=== PATIENT | male | born 1935 | race Caucasian/White ===

== ENCOUNTER 2018-10-05 06:10 | Inpatient (IN) | payer OTHER, BC ==
[2018-10-05] MEDS ORDERED: GENTAMICIN SO4 80 MG/2 ML VIAL ONE (07:32)
[2018-10-05] MEDS ORDERED: LIDOCAINE 1%-EPI 1:100,000 30 ML MDV IJ ONE (07:32)
[2018-10-05] MEDS ORDERED: VANCOMYCIN 1,000 MG VIAL (RESTRICTED TO ID ONLY) ONE ×2 (07:32→08:23)
[2018-10-05] MEDS ORDERED: THROMBIN (BOVINE) 20,000 UNIT VIAL TP ONE (07:33)
[2018-10-05] MEDS ORDERED: ceFAZolin SODIUM 1 GM VIAL ONE ×2 (07:33→08:21)
[2018-10-05] MEDS ORDERED: BUPIVACAINE HCL/PF 0.5% (5MG/ML) 10 ML VIAL ONE (07:34)
[2018-10-05] MEDS ORDERED: ROCURONIUM BROMIDE 50 MG/5 ML VIAL ONE (07:59)
[2018-10-05] MEDS ORDERED: PROPOFOL 20 ML ONE ×2 (07:59)
[2018-10-05] MEDS ORDERED: MIDAZOLAM HCL 2 MG/2 ML SINGLE DOSE VIAL ONE (07:59)
[2018-10-05] MEDS ORDERED: LIDOCAINE HCL/PF 2% SDV 5ML VIAL ONE (08:00)
--- NOTE | 2018-10-05 08:10 | HP ---
History & Physical Update - History History: No Change - Physical Physical: No Change - Assessment Assessment: No Change - Plan Plan: No Change (no change since visit on 10/04)
[2018-10-05] MEDS ORDERED: DESFLURANE GAS 240 ML BOTTLE IH ONE (08:17)
[2018-10-05] MEDS ORDERED: SODIUM CHLORIDE 0.9% P/F 10 ML VIAL IJ ONE ×2 (08:21→08:23)
[2018-10-05] MEDS ORDERED: ceFAZolin SODIUM 1 GM VIAL IVPB ONE (08:23)
[2018-10-05] MEDS ORDERED: DEXAMETHASONE SOD PHOSPHATE 4 MG/1 ML VIAL ONE (08:25)
[2018-10-05] MEDS ORDERED: ONDANSETRON 4 MG/2 ML VIAL ONE (08:25)
[2018-10-05] MEDS ORDERED: VANCOMYCIN 1,000 MG VIAL (RESTRICTED TO ID ONLY) IVPB ONE (08:25)
[2018-10-05] MEDS ORDERED: GENTAMICIN 80MG PREMIX BAG IVPB ONE (09:00)
[2018-10-05] MEDS ORDERED: HYDROGEN PEROXIDE 473 ML PO ONE (09:00)
[2018-10-05] MEDS ORDERED: BACITRACIN 50,000 UNITS VIAL TP ONE (09:00)
[2018-10-05] MEDS ORDERED: GLYCOPYRROLATE 0.2 MG/1 ML VIAL ONE (09:32)
[2018-10-05] MEDS ORDERED: NEOSTIGMINE METHYLSULFATE 0.5 MG/1 ML - 10 ML MDV ONE (09:32)
[2018-10-05] MEDS ORDERED: LIDOCAINE 1%/EPI 1:100000 (20 ML MULTI DOSE VIAL) INF ONE ×2 (09:33)
[2018-10-05] MEDS ORDERED: DEXAMETHASONE SOD PHOSPHATE 4 MG/1 ML VIAL IVPUSH PRN (10:12)
[2018-10-05] MEDS ORDERED: ONDANSETRON 4 MG/2 ML VIAL IVPUSH PRN ×2 (10:12→10:24)
[2018-10-05] MEDS ORDERED: PROMETHAZINE HCL 25 MG/1 ML VIAL IVPB PRN (10:12)
[2018-10-05] MEDS ORDERED: LACTATED RINGERS SOLUTION 1,000 ML IV SCH (10:15)
[2018-10-05] MEDS ORDERED: diphenhydrAMINE HCL 25 MG CAPSULE (FP) PO PRN (10:24)
--- NOTE | 2018-10-05 10:42 | OP ---
Operative Note - Note: Operative Date: 10/05/18 Pre-Operative Diagnosis: cervical spondylosis Operation: C6 corpectomy and roman catholic of lordosis and reconstruction with peek cage and anterior plating Post-Operative Diagnosis: Same as Pre-op Surgeon: Sesar Womack Superintendent Ammunition Storage: Mary Lou Darby Anesthesiologist/ADMINISTRATIVE ASSISTANT COORDINATOR: Flakito Burton Anesthesia: General Estimated Blood Loss (mls): 10 Fluid Volume Replaced (mls): 700 Operative Report Dictated: Yes
[2018-10-05] MEDS ORDERED: HYDROmorphone *PCA* 10MG/50ML DISP.SYRIN PCA ONE (10:56)
[2018-10-05] MEDS: HYDROmorphone *PCA* 10MG/50ML DISP.SYRIN PCA SCH (11:10)
[2018-10-05] MEDS: SODIUM CHLORIDE 1,000 ML IV SCH ×2 (11:11→19:05)
[2018-10-05] MEDS: INSULIN SLIDING SCALE (NOVOLOG) 1 VIAL SQ SCH ×2 (11:17→19:10)
[2018-10-05] MEDS ORDERED: ACETAMINOPHEN 1000 MG/100 ML VIAL (NON FORMULARY) IVPB PRN (12:05)
--- NOTE | 2018-10-05 12:19 | PN ---
Progress Note (short form) - Note Progress Note: surgery Confirmed with ASU that patient stated clearly that he has stopped all his home medications on his own and without the knowledge of his PCP Ashwin Martinez with the exception of Procardia which he has continued. I spoke directly to Dr Ashwin Martinez who confirmed the patient should be taking the following medications: Nifedipine 60mg daily Metformin XR 750 BID Allopurinol 300mg daily Atorvastatin 20mg daily Lisinopril 10mg daily We have started these medications in house and will educate patient on the importance on resuming medications and following up Dr Martinez as outpatient.
--- NOTE | 2018-10-05 14:13 | PN ---
Progress Note, Physician Chief Complaint: Cervical Spondylosis S/p C6 Corpectomy and sikh of lordosis History of Present Illness: Previous notes and events reviewed awake and alert NAD POD #0 C6 corpectomy and sikh of lordosis - Current Medication List Current Medications: Active Medications Acetaminophen (Ofirmev Injection -) 1,000 mg IVPB Q6H PRN PRN Reason: pain Stop: 10/06/18 12:04 Allopurinol (Zyloprim -) 300 mg PO DAILY [facility] Atorvastatin Calcium (Lipitor -) 20 mg PO HS [facility] Dexamethasone Sodium Phosphate (Decadron Injection -) 4 mg IVPUSH ONCE PRN PRN Reason: NAUSEA AND/OR VOMITING Diphenhydramine HCl (Benadryl Injection -) 12.5 mg IVPUSH ONCE PRN PRN Reason: FOR ITCHING Diphenhydramine HCl (Benadryl -) 25 mg PO Q6H PRN PRN Reason: FOR ITCHING Docusate Sodium (Colace -) 100 mg PO TID [facility] Fentanyl (Sublimaze Injection -) 50 mcg IVPUSH [id number] PRN PRN Reason: PAIN-PACU ORDER X 4 DOSES ONLY Ferrous Sulfate (Feosol -) 325 mg PO DAILY [facility] Folic Acid (Folic Acid -) 1 mg PO DAILY [facility] Heparin Sodium (Porcine) (Heparin -) 5,000 unit SQ TID [facility] Hydromorphone HCl (Dilaudid Bookmaker'S Clerk -) 0 mg BALL RACKER BALL RACKER [facility]; Protocol Stop: 10/12/18 10:13 Last Admin: 10/05/18 11:10 Dose: 10 mg Sodium Chloride (Normal Saline -) 1,000 mls @ 100 mls/hr IV ASDIR [facility] Last Admin: 10/05/18 11:11 Dose: 100 mls/hr Cefazolin Sodium (Ancef 1 Gm Premixed Ivpb -) 1 gm in 50 mls @ 100 mls/hr IVPB Q8H [facility] Insulin Aspart (Novolog Vial Sliding Scale -) 1 vial SQ TIDAC [facility]; Protocol Last Admin: 10/05/18 11:17 Dose: 4 syringe Lisinopril (Prinivil) 10 mg PO DAILY [facility] Metformin HCl (Glucophage Xr -) 750 mg PO BID [facility] Nifedipine (Procardia Xl -) 60 mg PO DAILY [facility] Ondansetron HCl (Zofran Injection) 4 mg IVPUSH Q4H PRN PRN Reason: NAUSEA AND/OR VOMITING Ondansetron HCl (Zofran Injection) 4 mg IVPUSH Q6H PRN PRN Reason: NAUSEA Promethazine HCl (Phenergan Injection -) 12.5 mg IVPB Q6H PRN PRN Reason: NAUSEA AND/OR VOMITING - Objective Vital Signs: Vital Signs Temperature 97.9 F 10/05/18 12:40 Pulse Rate 68 10/05/18 12:40 Respiratory Rate 18 10/05/18 12:40 Blood Pressure 166/82 10/05/18 12:40 O2 Sat by Pulse Oximetry (%) 97 10/05/18 12:25 Constitutional: Yes: No Distress, Calm Eyes: Yes: Conjunctiva Clear HENT: Yes: Atraumatic Neck: Yes: Other (c-collar) Cardiovascular: Yes: Regular Rate and Rhythm Respiratory: Yes: Regular, CTA Bilaterally Gastrointestinal: Yes: Normal Bowel Sounds, Soft Genitourinary: Yes: Torres Present Musculoskeletal: Yes: Muscle Weakness Extremities: Yes: WNL Edema: No Wound/Incision: Yes: Dressing Dry and Intact Neurological: Yes: Alert, Oriented Psychiatric: Yes: Alert, Oriented Problem List - Problems (1) HTN (hypertension) Assessment/Plan: -low Na diet -continue Lisinopril and Procardia Code(s): I10 - ESSENTIAL (PRIMARY) HYPERTENSION (2) Diabetes mellitus Assessment/Plan: -BGM ACHS -ISS + Metformin -HgA1c ordered -diabetic diet Code(s): E11.9 - TYPE 2 DIABETES MELLITUS WITHOUT COMPLICATIONS (3) Hyperlipidemia Assessment/Plan: -continue Atorvastatin -lipid panel Code(s): E78.5 - HYPERLIPIDEMIA, UNSPECIFIED (4) Cervical spondylosis Assessment/Plan: -neurosurgery on board -s/p C6 corpectomy and sikh of lordosis and reconstruction with peek cage and anterior plating -C-collar in place -Dilaudid BALL RACKER pump for pain management -IV Cefazolin -monitor ELEONORA drain output -pending Cervicak Spine CT Scan result Code(s): M47.812 - SPONDYLOSIS W/O MYELOPATHY OR RADICULOPATHY, CERVICAL REGION (5) Acute on chronic diastolic (congestive) heart failure Code(s): I50.33 - ACUTE ON CHRONIC DIASTOLIC (CONGESTIVE) HEART FAILURE Assessment/Plan see problem list dvt ppx
[2018-10-05] MEDS: DOCUSATE SODIUM 100 MG CAPSULE (FP) PO SCH ×2 (16:56→21:49)
[2018-10-05] MEDS ORDERED: CEFAZOLIN 1 GM/D5W 1 GM/50 ML BAG IVPB SCH (17:30)
[2018-10-05] MEDS: CEFAZOLIN 1 GM/D5W 1 GM/50 ML BAG IVPB SCH (19:05)
[2018-10-05] MEDS: HEPARIN NA (PORCINE) 5,000 UNITS/ML 1ML VIAL SQ SCH (21:48)
[2018-10-05] MEDS: ATORVASTATIN CA 20 MG TABLET (FP) PO SCH (21:49)
[2018-10-05] MEDS ORDERED: PT OWN MED DRAWER 7, Y5N ONE (22:04)
[2018-10-06] MEDS: CEFAZOLIN 1 GM/D5W 1 GM/50 ML BAG IVPB SCH ×3 (01:50→17:30)
[2018-10-06] MEDS ORDERED: PT OWN MED DRAWER 7, Y5N ONE (05:37)
[2018-10-06] MEDS: HEPARIN NA (PORCINE) 5,000 UNITS/ML 1ML VIAL SQ SCH ×3 (05:59→23:34)
[2018-10-06] MEDS: DOCUSATE SODIUM 100 MG CAPSULE (FP) PO SCH ×4 (05:59→23:40)
[2018-10-06] MEDS: INSULIN SLIDING SCALE (NOVOLOG) 1 VIAL SQ SCH ×3 (06:17→17:30)
[2018-10-06 07:25] LABS: HEMATOCRIT 37.8 % (35.4-49); HEMOGLOBIN 12.9 GM/dL (11.7-16.9); MCH 32.9 pg (25.7-33.7); MCHC 34.1 g/dl (32.0-35.9); MEAN CELL VOLUME 96.3 fl (80-96); MEAN PLT VOLUME 8.5 fl (7.5-11.1); PLATELET COUNT 208 K/MM3 (134-434); RBC 3.93 M/mm3 (4.00-5.60); RDW 13.3 % (11.9-15.9); WHITE BLOOD COUNT 8.5 K/mm3 (4.0-10.0)
[2018-10-06 07:42] LABS: ANION GAP 7 MMOL/L (8-16); BLOOD UREA NITROGEN 14 mg/dL (7-18); CALCIUM 8.4 mg/dL (8.5-10.1); CHLORIDE 105 mmol/L (98-107); CO2 28 mmol/L (21-32); CREATININE 0.9 mg/dL (0.55-1.3); GLUCOSE,RANDOM 156 mg/dL (74-106); POTASSIUM 4.4 mmol/L (3.5-5.1); SODIUM 139 mmol/L (136-145)
[2018-10-06 07:51] LABS: CHOLESTEROL 164 mg/dL (50-200); HDL CHOLESTEROL 71 mg/dL (40-60); TRIGLYCERIDES 61 mg/dL (0-150)
--- NOTE | 2018-10-06 09:13 | PN ---
Progress Note (short form) - Note Progress Note: surgery POD #1 ACDF patient seen and examined at bedside. Patient states he experienced some nausea and vomiting last night which has improved. He is not using his PRETZEL TWISTER because he said he doesn't like the way it makes him feel. He states the neck pain he was having pre-op has improved and he denies any radicular pain or paresthesias in his upper extremities. Vital Signs Temp 98.1 F 10/06/18 06:00 Pulse 54 L 10/06/18 06:00 Resp 20 10/06/18 06:00 BP 186/86 H 10/06/18 06:00 Pulse Ox 96 10/05/18 13:40 Intake & Output 10/05/18 10/05/18 10/06/18 11:59 23:59 11:59 Intake Total 5681 075 1617 Output Total 85 1805 340 Balance 1065 -1155 810 Intake: IV 8328 528 8324 Normal Saline - 1,000 ml 400 1000 @ 100 mls/hr IV ASDIR [facility] Rx#:[id number] IVPB 50 50 Oral 200 100 Output: Drainage 105 40 Right Neck 70 40 Urine 75 1700 300 Torres 700 300 Estimated Blood Loss 10 Other: Voiding Method Incontinent CBC, BMP 10/06/18 06:20 10/06/18 06:20 PE: A&Ox3, NAD Unlabored resp on 2L NC Anterior dressing c/d/i with drain at right side in good position draining well (110cc post op) surrounding tissue intact with no erythema, edema or d/c. trachea midline. b/l UE moving without limitation, 5/5 desktop support specialist strength. B.L LE compartments soft, supple and non-tender with +2 DP pulses Problem List - Problems (1) Cervical spondylosis Assessment/Plan: POD #1 ACDF with some post op vomiting and nausea improving. Not tolerating PRETZEL TWISTER. Of note: I spoke with patient about the importance of taking his medications as prescribed by his PCP and he expressed understanding and stated that from now on he would take the medications as directed. 1) stop PRETZEL TWISTER start oral pain meds 2) DVT prophylaxis with b/l scds and sq heparin 3) Zofran for nausea 4) advance diet as tolerated 5) OOB with PT 6) C-Collar 23 hours/day Code(s): M47.812 - SPONDYLOSIS W/O MYELOPATHY OR RADICULOPATHY, CERVICAL REGION
[2018-10-06] MEDS ORDERED: oxyCODONE HCL 5 MG TABLET PO PRN ×2 (10:19)
[2018-10-06] MEDS: LISINOPRIL 10 MG TABLET (FP) PO SCH (10:25)
[2018-10-06] MEDS: FOLIC ACID 1 MG TABLET (FP) PO SCH (10:25)
[2018-10-06] MEDS: FERROUS SO4 325 MG TABLET (FP) PO SCH (10:25)
[2018-10-06] MEDS: NIFEdipine E.R 60 MG TABLET (UD) PO SCH (10:25)
--- NOTE | 2018-10-06 10:25 | PN ---
Progress Note (short form) - Note Progress Note: Anesthesiology Post-op 83 y.o. man POD#1 s/p C6 corpectomy under GA. Pt. sitting up, feeling well. He denies pain. He no longer c/o n/v. VSS.No apparent anesthesia-related issues. 83 y.o. man with stable post-operative course. Continue post-operative care as per primary team.
[2018-10-06] MEDS: ALLOPURINOL 300 MG TABLET (FP) PO SCH (10:26)
--- NOTE | 2018-10-06 10:50 | PN ---
Progress Note, Physician History of Present Illness: vomited this am has chest pressure--mild - Current Medication List Current Medications: Active Medications Acetaminophen (Ofirmev Injection -) 1,000 mg IVPB Q6H PRN PRN Reason: pain Stop: 10/06/18 12:04 Allopurinol (Zyloprim -) 300 mg PO DAILY [facility] Last Admin: 10/06/18 10:26 Dose: 300 mg Atorvastatin Calcium (Lipitor -) 20 mg PO HS [facility] Last Admin: 10/05/18 21:49 Dose: 20 mg Dexamethasone Sodium Phosphate (Decadron Injection -) 4 mg IVPUSH ONCE PRN PRN Reason: NAUSEA AND/OR VOMITING Diphenhydramine HCl (Benadryl Injection -) 12.5 mg IVPUSH ONCE PRN PRN Reason: FOR ITCHING Diphenhydramine HCl (Benadryl -) 25 mg PO Q6H PRN PRN Reason: FOR ITCHING Docusate Sodium (Colace -) 100 mg PO TID [facility] Last Admin: 10/06/18 05:59 Dose: Not Given Ferrous Sulfate (Feosol -) 325 mg PO DAILY [facility] Last Admin: 10/06/18 10:25 Dose: 325 mg Folic Acid (Folic Acid -) 1 mg PO DAILY [facility] Last Admin: 10/06/18 10:25 Dose: 1 mg Heparin Sodium (Porcine) (Heparin -) 5,000 unit SQ TID [facility] Last Admin: 10/06/18 05:59 Dose: 5,000 unit Sodium Chloride (Normal Saline -) 1,000 mls @ 100 mls/hr IV ASDIR [facility] Last Admin: 10/05/18 19:05 Dose: 100 mls/hr Cefazolin Sodium (Ancef 1 Gm Premixed Ivpb -) 1 gm in 50 mls @ 100 mls/hr IVPB Q8H [facility] Last Admin: 10/06/18 10:25 Dose: 100 mls/hr Insulin Aspart (Novolog Vial Sliding Scale -) 1 vial SQ TIDAC [facility]; Protocol Last Admin: 10/06/18 06:17 Dose: 2 units Lisinopril (Prinivil) 10 mg PO DAILY [facility] Last Admin: 10/06/18 10:25 Dose: 10 mg Metformin HCl (Glucophage Xr -) 750 mg PO BIDAC [facility] Last Admin: 10/06/18 06:18 Dose: 750 mg Nifedipine (Procardia Xl -) 60 mg PO DAILY [facility] Last Admin: 10/06/18 10:25 Dose: 60 mg Ondansetron HCl (Zofran Injection) 4 mg IVPUSH Q4H PRN PRN Reason: NAUSEA AND/OR VOMITING Last Admin: 10/06/18 08:59 Dose: 4 mg Ondansetron HCl (Zofran Injection) 4 mg IVPUSH Q6H PRN PRN Reason: NAUSEA Oxycodone HCl (Roxicodone -) 5 mg PO Q4H PRN PRN Reason: PAIN LEVEL 1-5 Oxycodone HCl (Roxicodone -) 10 mg PO Q4H PRN PRN Reason: PAIN LEVEL 6-10 Promethazine HCl (Phenergan Injection -) 12.5 mg IVPB Q6H PRN PRN Reason: NAUSEA AND/OR VOMITING - Objective Vital Signs: Vital Signs Temperature 98.1 F 10/06/18 06:00 Pulse Rate 54 L 10/06/18 06:00 Respiratory Rate 20 10/06/18 06:00 Blood Pressure 186/86 H 10/06/18 06:00 O2 Sat by Pulse Oximetry (%) 96 10/05/18 13:40 Cardiovascular: Yes: S1, S2 Respiratory: Yes: On Nasal O2, Rales Gastrointestinal: Yes: Normal Bowel Sounds, Soft Labs: CBC, BMP 10/06/18 06:20 10/06/18 06:20 Problem List - Problems (1) CHF (congestive heart failure) Assessment/Plan: dc ivf cxr Code(s): I50.9 - HEART FAILURE, UNSPECIFIED (2) Chest pain Assessment/Plan: maybe from vomiting ppi ce and ekg Code(s): R07.9 - CHEST PAIN, UNSPECIFIED (3) Vomiting Code(s): R11.10 - VOMITING, UNSPECIFIED (4) Cervical spondylosis Assessment/Plan: -neurosurgery on board -s/p C6 corpectomy and taoist of lordosis and reconstruction with peek cage and anterior plating -C-collar in place -Dilaudid STRATEGIC MANAGER pump for pain management -IV Cefazolin -monitor ELEONORA drain output -pending [facility] Spine CT Scan result Code(s): M47.812 - SPONDYLOSIS W/O MYELOPATHY OR RADICULOPATHY, CERVICAL REGION (5) Diabetes mellitus Assessment/Plan: -BGM ACHS -ISS + Metformin -HgA1c ordered -diabetic diet Code(s): E11.9 - TYPE 2 DIABETES MELLITUS WITHOUT COMPLICATIONS (6) HTN (hypertension) Assessment/Plan: -low Na diet -continue Lisinopril and Procardia Code(s): I10 - ESSENTIAL (PRIMARY) HYPERTENSION (7) Hyperlipidemia Assessment/Plan: -continue Atorvastatin -lipid panel Code(s): E78.5 - HYPERLIPIDEMIA, UNSPECIFIED
[2018-10-06 12:11] LABS: N-TERMINAL BNP 849.1 pg/ml (5-450)
--- NOTE | 2018-10-06 12:32 | EKG ---
Test Reason : Blood Pressure : / mmHG Vent. Rate : 062 BPM Atrial Rate : 062 BPM P-R Int : 254 ms QRS Dur : 096 ms QT Int : 416 ms P-R-T Axes : 102 -24 -14 degrees QTc Int : 422 ms SINUS RHYTHM WITH 1ST DEGREE A-V BLOCK OTHERWISE NORMAL ECG WHEN COMPARED WITH ECG OF 05-OCT-2018 06:43, NO SIGNIFICANT CHANGE WAS FOUND Confirmed by STEPHANY FARRELL, JACKELINE ([id number]) on 10/06/2018 12:32:21 PM Referred By: Concepción AVITIA Confirmed By:JACKELINE HAMMOND MD
[2018-10-06] MEDS: PANTOPRAZOLE 40 MG TABLET (FP) PO SCH (14:26)
[2018-10-06] MEDS ORDERED: BENZOCAINE/MENTH/CETYLPYRD CL 1 EACH LOZENGE MM PRN (14:56)
[2018-10-06 16:58] VITALS: BMI 29.1
[2018-10-06] MEDS: ATORVASTATIN CA 20 MG TABLET (FP) PO SCH (23:35)
[2018-10-07] MEDS: CEFAZOLIN 1 GM/D5W 1 GM/50 ML BAG IVPB SCH ×3 (02:29→09:14)
[2018-10-07] MEDS: DOCUSATE SODIUM 100 MG CAPSULE (FP) PO SCH (06:25)
[2018-10-07] MEDS: HEPARIN NA (PORCINE) 5,000 UNITS/ML 1ML VIAL SQ SCH (06:25)
[2018-10-07] MEDS: INSULIN SLIDING SCALE (NOVOLOG) 1 VIAL SQ SCH ×2 (06:26→12:00)
[2018-10-07] MEDS: HYDROmorphone *PCA* 10MG/50ML DISP.SYRIN PCA SCH (07:25)
--- NOTE | 2018-10-07 08:49 | PN ---
Progress Note (short form) - Note Progress Note: surgery POD #2 ACDF patient seen and examined at bedside. Patient has very little pain and is ready to go home. He is tolerating a regular diet and he denies any cp, SOB, N/V fever or chills. Vital Signs Temp 98.9 F 10/07/18 06:00 Pulse 64 10/07/18 06:00 Resp 20 10/07/18 06:00 BP 151/76 10/07/18 06:00 Pulse Ox 98 10/06/18 21:00 Intake & Output 10/06/18 10/06/18 10/07/18 11:59 23:59 11:59 Intake Total 1150 1650 200 Output Total 340 340 20 Balance 810 1310 180 Weight 175 lb Intake: IV 1000 1000 0 Normal Saline - 1,000 ml 1000 1000 0 @ 100 mls/hr IV ASDIR SELVIN Rx#:[id number] IVPB 50 50 Oral 100 600 200 Output: Drainage 40 40 20 Right Neck 40 40 20 Urine 300 300 Torres 300 300 Other: Voiding Method Urinal Urinal Urinal # Unmeasured Voids Torres 1 Height 5 ft 5 in Body Mass Index (BMI) 29.1 Weight Measurement Method Built in [facility] PE: A&Ox3, NAD Unlabored resp on RA Anterior incision c/d/i with surrounding tissue intact, ELEONORA drain removed with tip fully intact, surrounding tissue intact with no erythema, edema or d/c. trachea midline. b/l UE moving without limitation, 5/5 bioinformatics computer scientist strength. B.L LE compartments soft, supple and non-tender with +2 DP pulses Problem List - Problems (1) Cervical spondylosis Assessment/Plan: POD #2 ACDF patient doing well. 1) Continue c-collar 23 hours/day 2) OOB with PT 3) DVT prophylaxis 4) d/c home with today 5) f/u with PCP as outpatient 6) f/u with Dr Womack as scheduled. Code(s): M47.812 - SPONDYLOSIS W/O MYELOPATHY OR RADICULOPATHY, CERVICAL REGION
[2018-10-07] MEDS: PANTOPRAZOLE 40 MG TABLET (FP) PO SCH (10:16)
[2018-10-07] MEDS: NIFEdipine E.R 60 MG TABLET (UD) PO SCH (10:16)
[2018-10-07] MEDS: FERROUS SO4 325 MG TABLET (FP) PO SCH (10:16)
[2018-10-07] MEDS: LISINOPRIL 10 MG TABLET (FP) PO SCH (10:16)
[2018-10-07] MEDS: FOLIC ACID 1 MG TABLET (FP) PO SCH (10:16)
--- NOTE | 2018-10-07 10:39 | DS ---
"Physical Examination Vital Signs: Vital Signs Temperature 98.9 F 10/07/18 06:00 Pulse Rate 64 10/07/18 06:00 Respiratory Rate 20 10/07/18 06:00 Blood Pressure 151/76 10/07/18 06:00 O2 Sat by Pulse Oximetry (%) 98 10/06/18 21:00 Findings/Remarks: Cervical Spondylosis S/p C6 Corpectomy and yazidi of lordosis Constitutional: Yes: No Distress, Calm Eyes: Yes: Conjunctiva Clear HENT: Yes: Atraumatic Neck: Yes: Other (c-collar) Cardiovascular: Yes: Regular Rate and Rhythm Respiratory: Yes: Regular, CTA Bilaterally Gastrointestinal: Yes: Normal Bowel Sounds, Soft Musculoskeletal: Yes: WNL Extremities: Yes: WNL Edema: No Neurological: Yes: Alert, Pre-Existing Deficit Psychiatric: Yes: Alert Labs: CBC, BMP 10/06/18 06:20 10/06/18 06:20 Discharge Summary Reason For Visit: CERVICAL SPONDYLOSIS Current Active Problems CHF (congestive heart failure) (Acute) Cervical spondylosis (Acute) Chest pain (Acute) Diabetes mellitus (Acute) HTN (hypertension) (Acute) Hyperlipidemia (Acute) Vomiting (Acute) Hospital Course: see progress notes Laboratory Tests 10/05/18 10/05/18 10/05/18 06:32 07:03 07:40 WBC RBC Hgb Hct MCV MCH MCHC RDW Plt Count MPV Sodium Potassium Chloride Carbon Dioxide Anion Gap BUN Creatinine Creat Clearance w eGFR POC Glucometer 168 Random Glucose Hemoglobin A1c % Calcium Creatine Kinase Creatine Kinase Index CK-MB (CK-2) Troponin I B-Natriuretic Peptide Triglycerides Cholesterol Total LDL Cholesterol HDL Cholesterol Blood Type O POSITIVE O POSITIVE Antibody Screen Negative 10/05/18 10/05/18 10/06/18 10:40 19:08 05:51 WBC RBC Hgb Hct MCV MCH MCHC RDW Plt Count MPV Sodium Potassium Chloride Carbon Dioxide Anion Gap BUN Creatinine Creat Clearance w eGFR POC Glucometer 245 194 153 Random Glucose Hemoglobin A1c % Calcium Creatine Kinase Creatine Kinase Index CK-MB (CK-2) Troponin I B-Natriuretic Peptide Triglycerides Cholesterol Total LDL Cholesterol HDL Cholesterol Blood Type Antibody Screen 10/06/18 10/06/18 10/06/18 06:20 06:20 06:20 WBC 8.5 RBC 3.93 L Hgb 12.9 Hct 37.8 MCV 96.3 H MCH 32.9 MCHC 34.1 RDW 13.3 Plt Count 208 MPV 8.5 Sodium 139 Potassium 4.4 Chloride 105 Carbon Dioxide 28 Anion Gap 7 L BUN 14 Creatinine 0.9 Creat Clearance w eGFR 80.99 POC Glucometer Random Glucose 156 H Hemoglobin A1c % Calcium 8.4 L Creatine Kinase Creatine Kinase Index CK-MB (CK-2) Troponin I B-Natriuretic Peptide Triglycerides 61 Cholesterol 164 Total LDL Cholesterol 88 HDL Cholesterol 71 H Blood Type Antibody Screen 10/06/18 10/06/18 10/06/18 06:20 11:10 14:10 WBC RBC Hgb Hct MCV MCH MCHC RDW Plt Count MPV Sodium Potassium Chloride Carbon Dioxide Anion Gap BUN Creatinine Creat Clearance w eGFR POC Glucometer 195 Random Glucose Hemoglobin A1c % 7.6 H Calcium Creatine Kinase 332 H Creatine Kinase Index 0.6 CK-MB (CK-2) 2.3 Troponin I < 0.02 B-Natriuretic Peptide 849.1 H Triglycerides Cholesterol Total LDL Cholesterol HDL Cholesterol Blood Type Antibody Screen 10/06/18 17:20 WBC RBC Hgb Hct MCV MCH MCHC RDW Plt Count MPV Sodium Potassium Chloride Carbon Dioxide Anion Gap BUN Creatinine Creat Clearance w eGFR POC Glucometer 137 Random Glucose Hemoglobin A1c % Calcium Creatine Kinase Creatine Kinase Index CK-MB (CK-2) Troponin I B-Natriuretic Peptide Triglycerides Cholesterol Total LDL Cholesterol HDL Cholesterol Blood Type Antibody Screen Active Medications Generic Name Dose Route Start Last Admin Trade Name Freq PRN Reason Stop Dose Admin Allopurinol 300 mg 10/06/18 10:00 10/06/18 10:26 Zyloprim - PO 300 mg DAILY [facility] Administration Atorvastatin Calcium 20 mg 10/05/18 22:00 10/06/18 23:35 Lipitor - PO Not Given [facility] Benzocaine/Menthol 1 each 10/06/18 14:56 10/06/18 16:19 Cepacol Lozenge - MM 1 each Q2H PRN Administration SORE THROAT Dexamethasone Sodium Phosphate 4 mg 10/05/18 10:12 Decadron Injection - IVPUSH ONCE PRN NAUSEA AND/OR VOMITING Diphenhydramine HCl 12.5 mg 10/05/18 10:12 Benadryl Injection - IVPUSH ONCE PRN FOR ITCHING Diphenhydramine HCl 25 mg 10/05/18 10:24 Benadryl - PO Q6H PRN FOR ITCHING Docusate Sodium 100 mg 10/05/18 14:00 10/07/18 06:25 Colace - PO 100 mg TID [facility] Administration Ferrous Sulfate 325 mg 10/06/18 10:00 10/07/18 10:16 Feosol - PO 325 mg DAILY [facility] Administration Folic Acid 1 mg 10/06/18 10:00 10/07/18 10:16 Folic Acid - PO 1 mg DAILY [facility] Administration Heparin Sodium (Porcine) 5,000 unit 10/05/18 22:00 10/07/18 06:25 Heparin - SQ 5,000 unit TID [facility] Administration Cefazolin Sodium 1 gm in 50 mls @ 100 mls/hr 10/05/18 17:30 10/07/18 09:14 Ancef 1 Gm Premixed Ivpb - IVPB Not Given Q8H [facility] Insulin Aspart 1 vial 10/05/18 11:00 10/07/18 06:26 Novolog Vial Sliding Scale - SQ Not Given TIDAC [facility] Protocol Lisinopril 10 mg 10/06/18 10:00 10/07/18 10:16 Prinivil PO 10 mg DAILY [facility] Administration Metformin HCl 750 mg 10/05/18 16:30 10/07/18 06:25 Glucophage Xr - PO 750 mg BIDAC [facility] Administration Nifedipine 60 mg 10/06/18 10:00 10/07/18 10:16 Procardia Xl - PO 60 mg DAILY [facility] Administration Ondansetron HCl 4 mg 10/05/18 10:12 10/06/18 08:59 Zofran Injection IVPUSH 4 mg Q4H PRN Administration NAUSEA AND/OR VOMITING Ondansetron HCl 4 mg 10/05/18 10:24 Zofran Injection IVPUSH Q6H PRN NAUSEA Oxycodone HCl 5 mg 10/06/18 10:19 Roxicodone - PO Q4H PRN PAIN LEVEL 1-5 Oxycodone HCl 10 mg 10/06/18 10:19 10/06/18 17:25 Roxicodone - PO 10 mg Q4H PRN Administration PAIN LEVEL 6-10 Pantoprazole Sodium 40 mg 10/06/18 11:00 10/07/18 10:16 Protonix - PO 40 mg DAILY [facility] Administration Promethazine HCl 12.5 mg 10/05/18 10:12 Phenergan Injection - IVPB Q6H PRN NAUSEA AND/OR VOMITING Condition: Good - Instructions Diet, Activity, Other Instructions: Post Operative Instructions Physical Activity Resume your normal everyday activity as tolerated. No heavy lifting or exercise until seen by your surgeon. You may walk unlimited amounts and climb stairs. You may resume driving the car when you feel safe and comfortable behind the wheel and you are no longer wearing your brace. Do not operate a vehicle while taking narcotic medication. Brace Wear your surgical collar for 23 hours per day, only removing to shower. Wound Care Keep your incision clean, dry and covered at all times. Apply an occlusive dressing (Saran wrap or Tegaderm) when showering to avoid getting your incision wet. Do not submerge incision or apply ointments or creams. Diet There are no dietary restrictions. Eat healthy, high-fiber foods. Drink 6-8 glasses of liquid each day. This will assist in keeping your bowels regular. Pain Management You may take Tylenol (Acetaminophen) for mild pain. You have been prescribed a narcotic pain medication for moderate to severe pain. Take as directed. Do not take additional Tylenol if your narcotic pain prescription contains Tylenol ( Acetaminophen). Do not drive, drink alcohol or operate heavy machinery while taking narcotic pain medications. Do not take any NSAIDS (Ibuprofen, Motrin, Aleve, etc) for 3 months unless otherwise discussed with your surgeon. Call Dr Ferreira for any of the following: Severe pain not relieved by medication Fever of 101 or higher Excessive bleeding or drainage on dressing Inability to urinate Any chest pain or shortness of breath, seek Emergency Care. ISTOP: [phone] Call the office to confirm a post-operative appointment for 2-3 weeks post-op Sesar Womack MD [facility] [address] [place] [address] Follow up with PMD 1 week after discharge follow up with Dr Delgado as scheduled continue with medication regimen as prescribed return to ER if severe pain, respiratory distress, chest pain This report was requested by: Lizbet Crews | Reference #: [id number] (ISTOP) Referrals: Sesar Womack MD, FAANS [Staff Physician] - Disposition: HOME - Home Medications Comprehensive Discharge Medication List: Ambulatory Orders Allopurinol [Zyloprim -] 300 mg PO 10/05/18 Atorvastatin Ca [Lipitor] 20 mg PO HS 10/05/18 Lisinopril 10 mg PO DAILY 10/05/18 metFORMIN XR [Glucophage *Xr* -] 750 mg PO BID 10/05/18 Allopurinol [Zyloprim -] 300 mg PO DAILY tablet 10/07/18 Atorvastatin Ca [Lipitor] 20 mg PO HS tablet 10/07/18 Docusate Sodium [Colace -] 100 mg PO TID capsule 10/07/18 Ferrous Sulfate [Feosol] 325 mg PO DAILY ud 10/07/18 Folic Acid - 1 mg PO DAILY tablet 10/07/18 Lisinopril [Prinivil] 10 mg PO DAILY tablet 10/07/18 Nifedipine ER [Procardia XL -] 60 mg PO DAILY tab.er.24 10/07/18 Pantoprazole Sodium [Protonix -] 40 mg PO DAILY tablet.ec 10/07/18 metFORMIN XR [Glucophage Xr -] 750 mg PO BIDAC tab.sr.24h 10/07/18 traMADol HCL [Ultram] 50 mg PO Q8H #9 tablet MDD 3 10/07/18"
[2018-10-07 11:23] VITALS: BP 144/82; PULSE 77; TEMP 98.1
[2018-10-07] MEDS: ALLOPURINOL 300 MG TABLET (FP) PO SCH (11:30)
== END 2018-10-07 13:40 | disposition home or self-care (01) | DRG 471 ==
LOC: JSAMEDAYSX 06:10 → J8W 13:12
PROVIDERS: ADMIT Family Medicine; ATTEND Family Medicine
PROC: 0PB30ZZ Excision of Cervical Vertebra, Open Approach (ICD-10-PCS; 2018-10-05)
PROC: B01BZZZ Fluoroscopy of Spinal Cord (ICD-10-PCS; 2018-10-05)
PROC: 0RG20A0 Fusion of 2 or more Cervical Vertebral Joints with Interbody Fusion Device, Anterior Approach, Anterior Column, Open Approach (ICD-10-PCS; principal; 2018-10-05 08:00)
DX: M47.812 Spondylosis without myelopathy or radiculopathy, cervical region (principal); I50.33 Acute on chronic diastolic (congestive) heart failure; M51.06 Intervertebral disc disorders with myelopathy, lumbar region; M50.00 Cervical disc disorder with myelopathy, unspecified cervical region; M40.292 Other kyphosis, cervical region; I11.0 Hypertensive heart disease with heart failure; I50.9 Heart failure, unspecified; E11.9 Type 2 diabetes mellitus without complications; Z79.84 Long term (current) use of oral hypoglycemic drugs; E78.5 Hyperlipidemia, unspecified; R07.89 Other chest pain; R11.10 Vomiting, unspecified; M10.9 Gout, unspecified
CPT/HCPCS: 36415; 71045-TC-FY; 72125-TC; 76000-TC-FY; 80048; 80061; 82550; 82553; 82962; 83036; 83721; 83880; 84484; 85027; 86850; 86900; 86901; 93005; 93010; 94760; 97116-GP; 97161-GP; J1644; J7030

== ENCOUNTER 2019-08-25 07:54 | Day surgery (SDC) | payer OTHER, BC ==
[2019-08-24 19:30] VITALS: BMI 27.4
[2019-08-25 08:29] VITALS: BP 195/87; PULSE 55; TEMP 98.4
--- NOTE | 2019-08-25 11:27 | HP ---
History & Physical Update - History History: No Change - Physical Physical: No Change - Assessment Assessment: No Change - Plan Plan: No Change (Initial H&P is complete/accurate and UTD. [facility] No new medications or complaints.)
[2019-08-25] MEDS ORDERED: VANCOMYCIN 1,000 MG VIAL (RESTRICTED TO ID ONLY) ONE (12:15)
[2019-08-25] MEDS ORDERED: THROMBIN (BOVINE) 20,000 UNIT VIAL TP ONE ×2 (12:15→12:19)
[2019-08-25] MEDS ORDERED: LIDOCAINE 1%-EPI 1:100,000 30 ML MDV IJ ONE (12:15)
[2019-08-25] MEDS ORDERED: GENTAMICIN SO4 80 MG/2 ML VIAL ONE (12:15)
== END 2019-08-25 13:06 | disposition home or self-care (01) ==
LOC: UNDOADMIN 07:54 → JASUSAT 07:54 → JSAMEDAYSX 07:54 → EDSTATUS 10:30 → UNDODISIN 13:06 → JASUSAT 13:06
PROVIDERS: ATTEND Neurological Surgery
DX: Z53.8 Procedure and treatment not carried out for other reasons (principal)
CPT/HCPCS: 82962

== ENCOUNTER 2021-11-28 07:32 | Day surgery (SDC) | payer OTHER ==
[2021-11-25 15:55] VITALS: BMI 26.6
[2021-11-28] MEDS ORDERED: MIDAZOLAM HCL 2 MG/2 ML SINGLE DOSE VIAL ONE (07:51)
[2021-11-28] MEDS ORDERED: PROPOFOL 20 ML ONE (07:51)
[2021-11-28] MEDS ORDERED: BUPIVACAINE HCL 100 ML ONE (08:06)
[2021-11-28] MEDS ORDERED: LIDOCAINE HCL 1%, 10 MG/ML (20ML VIAL) ONE (08:06)
[2021-11-28] MEDS ORDERED: ceFAZolin SODIUM 1 GM VIAL ONE ×2 (08:22)
[2021-11-28] MEDS ORDERED: ONDANSETRON 4 MG/2 ML VIAL ONE (08:48)
[2021-11-28] MEDS ORDERED: GLYCOPYRROLATE 0.2 MG/1 ML VIAL ONE ×2 (08:48)
[2021-11-28] MEDS ORDERED: DEXAMETHASONE SOD PHOSPHATE 4 MG/1 ML VIAL ONE (08:48)
[2021-11-28 09:27] VITALS: TEMP 97.6
[2021-11-28 10:15] VITALS: BP 126/61; PULSE 52
== END 2021-11-28 10:05 | disposition home or self-care (01) ==
LOC: FASU 07:32
PROVIDERS: ATTEND Orthopaedic Surgery
PROC: 0LB80ZZ Excision of Left Hand Tendon, Open Approach (ICD-10-PCS; 2021-11-28)
PROC: 0LB60ZZ Excision of Left Lower Arm and Wrist Tendon, Open Approach (ICD-10-PCS; 2021-11-28)
PROC: 0LB60ZZ Excision of Left Lower Arm and Wrist Tendon, Open Approach (ICD-10-PCS; 2021-11-28)
PROC: 0LB60ZZ Excision of Left Lower Arm and Wrist Tendon, Open Approach (ICD-10-PCS; 2021-11-28)
PROC: 0LB60ZZ Excision of Left Lower Arm and Wrist Tendon, Open Approach (ICD-10-PCS; 2021-11-28)
PROC: 0LB60ZZ Excision of Left Lower Arm and Wrist Tendon, Open Approach (ICD-10-PCS; 2021-11-28)
PROC: 0LB60ZZ Excision of Left Lower Arm and Wrist Tendon, Open Approach (ICD-10-PCS; 2021-11-28)
PROC: 0LB60ZZ Excision of Left Lower Arm and Wrist Tendon, Open Approach (ICD-10-PCS; 2021-11-28)
PROC: 0LB60ZZ Excision of Left Lower Arm and Wrist Tendon, Open Approach (ICD-10-PCS; 2021-11-28)
PROC: 01N50ZZ Release Median Nerve, Open Approach (ICD-10-PCS; principal; 2021-11-28 08:35)
DX: G56.02 Carpal tunnel syndrome, left upper limb (principal)
CPT/HCPCS: 88304-TC